=== PATIENT | female | born 1995 | race Caucasian/White ===

== ENCOUNTER 2018-03-12 16:32 | Inpatient (IN) | payer OTHER ==
[~2018-03-12] VITALS: Ht 154.9 cm; Wt 49.9 kg
== END 2018-03-17 15:21 | DRG 690 ==
LOC: ER 16:32 → OB/GYN 22:07 → SEC-K 22:07 → OB/GYN 03-13 13:11
PROC: BW21ZZZ Computerized Tomography (CT Scan) of Abdomen and Pelvis (ICD-10-PCS; principal; 2018-03-13)
PROC: BU4CZZZ Ultrasonography of Uterus and Ovaries (ICD-10-PCS; 2018-03-13)
PROC: CF1YYZZ Planar Nuclear Medicine Imaging of Hepatobiliary System and Pancreas using Other Radionuclide (ICD-10-PCS; 2018-03-16)
PROC: BW40ZZZ Ultrasonography of Abdomen (ICD-10-PCS; 2018-03-16)
DX: N39.0 Urinary tract infection, site not specified (principal); N83.292 Other ovarian cyst, left side

== ENCOUNTER → 2019-05-17 | Outpatient (CLI) | payer OTHER | END | disposition home or self-care (01) | LOC: RAD 14:58 | DX: M25.532 Pain in left wrist (principal) ==

== ENCOUNTER 2022-02-11 08:50 | Outpatient (CLI) | payer OTHER | END 2022-02-11 08:54 | disposition home or self-care (01) | LOC: RAD 08:50 | PROVIDERS: ATTEND Orthopaedic Surgery | DX: M25.532 Pain in left wrist (principal) ==

== ENCOUNTER 2022-02-13 06:59 | Outpatient (CLI) | payer OTHER | END 2022-02-13 07:00 | disposition home or self-care (01) | LOC: LAB 06:59 | PROVIDERS: ATTEND Orthopaedic Surgery | DX: D64.9 Anemia, unspecified (principal); E78.9 Disorder of lipoprotein metabolism, unspecified; D68.8 Other specified coagulation defects; N39.0 Urinary tract infection, site not specified; E11.9 Type 2 diabetes mellitus without complications; I10 Essential (primary) hypertension; Z76.89 Persons encountering health services in other specified circumstances ==

== ENCOUNTER 2022-02-25 05:25 | Day surgery (SDC) | payer OTHER ==
[~2022-02-25] VITALS: Ht 154.9 cm; Wt 54.4 kg
== END 2022-02-25 11:00 | disposition home or self-care (01) ==
LOC: CIR.AMB 05:25
PROVIDERS: ATTEND Orthopaedic Surgery
DX: M65.4 Radial styloid tenosynovitis [de Quervain] (principal); Z20.822 Contact with and (suspected) exposure to COVID-19; M65.832 Other synovitis and tenosynovitis, left forearm

== ENCOUNTER 2024-08-31 13:59 | Outpatient (CLI) | payer OTHER | END 2024-08-31 14:02 | disposition home or self-care (01) | LOC: RAD 13:59 | PROVIDERS: ATTEND Orthopaedic Surgery | DX: M25.532 Pain in left wrist (principal) ==